=== PATIENT | male | born 1955 | race Caucasian/White ===

== ENCOUNTER 2021-11-27 08:33 | Outpatient (CLI) | payer MEDICARE, BC ==
[2021-11-27 20:28] LABS: SARS-CoV-2 PCR by NAA Not Detected (NotDetected)
== END 2021-11-27 08:34 | disposition home or self-care (01) ==
LOC: LABBT 08:33
PROVIDERS: ATTEND Ophthalmology Retina Specialist
DX: H43.312 Vitreous membranes and strands, left eye (principal); Z20.822 Contact with and (suspected) exposure to COVID-19
CPT/HCPCS: U0003; U0005

== ENCOUNTER 2021-11-30 06:05 | Day surgery (SDC) | payer MEDICARE, BC ==
[2021-11-28 15:55] VITALS: BMI 27.1
[~2021-11-30 06:05] MED LIST: Cyclopentolate 1% Opth Drop 2 ML BOT FS SCH; EPINEPHrine 0.3 MG in Ophthalmic Irrigation Solution 500 ML IRR SCH; Phenylephrine 2.5% Ophth Soln 5 ML BOT FS SCH
[2021-11-30] MEDS ORDERED: Phenylephrine 2.5% Ophth Soln 5 ML BOT ONE (06:26)
[2021-11-30] MEDS ORDERED: Cyclopentolate 1% Opth Drop 2 ML BOT ONE (06:26)
[2021-11-30] MEDS ORDERED: Midazolam HCl 2 mg/2 ml Vial ONE (06:37)
[2021-11-30] MEDS ORDERED: PROPOFOL 200 MG/20 ML VIAL ONE (07:08)
[2021-11-30] MEDS ORDERED: Lidocaine 4% PF 5 ML AMP ONE (07:08)
[2021-11-30] MEDS ORDERED: Lidocaine 1% PF 5 ML VIAL ONE ×2 (07:08)
[2021-11-30] MEDS ORDERED: Bupivacaine 0.75% 10 ML VIAL ONE (07:08)
[2021-11-30] MEDS ORDERED: Maxitrol 0.1% Opth Oint 3.5 GM TUBE ONE (07:08)
[2021-11-30] MEDS ORDERED: CEFAZOLIN 1 GM VIAL ONE (07:08)
== END 2021-11-30 09:00 | disposition home or self-care (01) ==
LOC: SDC 06:05
PROVIDERS: ATTEND Ophthalmology Retina Specialist
PROC: 08T43ZZ Resection of Right Vitreous, Percutaneous Approach (ICD-10-PCS; principal; 2021-11-30)
PROC: 08NE3ZZ Release Right Retina, Percutaneous Approach (ICD-10-PCS; 2021-11-30)
DX: H43.311 Vitreous membranes and strands, right eye (principal); Z88.1 Allergy status to other antibiotic agents; Z91.018 Allergy to other foods; Z79.899 Other long term (current) drug therapy
CPT/HCPCS: J0171; J0690; J2250; J2704; J3490